=== PATIENT | male | born 1955 | race Caucasian/White ===

== ENCOUNTER → 2017-08-25 | Outpatient (CLI) | payer OTHER | END | disposition home or self-care (01) | LOC: CDC 11:59 | DX: Z01.810 Encounter for preprocedural cardiovascular examination (principal) | CPT/HCPCS: 93000 ==

== ENCOUNTER 2018-01-07 09:58 | Observation (INO) | payer OTHER ==
[~2018-01-07] VITALS: Ht 172.7 cm; Wt 77.5 kg
[2018-01-07 10:14] LABS: BASOPHIL (%) 0.1 % (0-1); EOSINOPHIL (%) 0 % (0-5); HEMATOCRIT 48.5 % (38.0-50.0); HEMOGLOBIN 17.6 G/DL (12.5-16.6); IMMATURE GRANULOCYTE (%) 0.4 % (0.0-0.7); LYMPHOCYTE (%) 14.2 % (15-42); MCH 32.9 PG (29.0-34.0); MCHC 36.3 G/DL (30.0-36.0); MCV 90.7 FL (86-99); MONOCYTE (%) 6.8 % (3-12); MONOCYTE COUNT 0.9 K/uL (0-0.8); NEUTROPHIL (%) 78.5 % (45-76); NEUTROPHIL COUNT 10.7 K/uL (1.8-6.4); PLATELET COUNT 126 K/uL (156-360); RBC DIS.WIDTH-CV 12.2 % (11.8-14.6); RBC DIS.WIDTH-SD 40.2 % (39-53); RED BLOOD COUNT 5.35 M/uL (4.00-5.50); WHITE BLOOD COUNT 13.7 K/uL (4.1-10.2)
[2018-01-07 10:19] LABS: INTER. NORMALIZED RATIO 1.1
[2018-01-07 10:22] LABS: PTT 32.5 SEC (25-37)
[2018-01-07 10:24] LABS: AMYLASE 32 IU/L (1-118); CHLORIDE 109 mEq/L (99-109); POTASSIUM 4.3 mEq/L (3.7-5.4); SODIUM 142 mEq/L (136-147)
[2018-01-07 10:26] LABS: GLUCOSE 290 mg/dL (70-99)
[2018-01-07 10:29] LABS: SERUM ETHYL ALCOHOL < 10 mg/dL
[2018-01-07 10:30] LABS: GFR ESTIMATE (CALCULATED) > 59 mL/min/ (58.99-99999)
[2018-01-07 10:31] LABS: UREA NITROGEN (BUN) 11 mg/dL (9-23)
[2018-01-07 10:33] LABS: LIPASE 20 U/L (1.0-51.0)
[2018-01-07 10:37] LABS: TROP-I INTERPRETATION NEGATIVE; TROPONIN-I 0.02 ng/mL (0.0-0.30)
[2018-01-07 11:20] LABS: APPEARANCE CLEAR ((CLEAR)); BILIRUBIN NEGATIVE; BLOOD NEGATIVE; COLOR YELLOW ((YELLOW)); GLUCOSE (STRIP) >=500; KETONES NEGATIVE; LEUKOCYTES NEGATIVE; NITRITE NEGATIVE; PROTEIN (STRIP) 30; SPECIFIC GRAVITY 1.013 (1.000-1.030); UCUL ADDED? NO
[2018-01-07 11:29] LABS: AMPHETAMINE NEGATIVE (500 ng/mL); BARBITURATES NEGATIVE (200 ng/mL); BENZODIAZEPINES PRESUMPTIVE POSITIVE (150 ng/mL); BUPRENORPHINE NEGATIVE (10 ng/mL); COCAINE NEGATIVE (150 ng/mL); METHADONE NEGATIVE (200 ng/mL); METHAMPHETAMINE NEGATIVE (500 ng/mL); OPIATES (MORPHINE) NEGATIVE (100 ng/mL); OXYCODONE NEGATIVE (100 ng/mL); PHENCYCLIDINE NEGATIVE (25 ng/mL); PROPOXYPHENE NEGATIVE (300 ng/mL); THC CANNABINOIDS NEGATIVE (50 ng/mL); TRICYCLIC ANTIDEPRESSANTS NEGATIVE (300 ng/mL)
[2018-01-07 12:16] LABS: BENZODIAZEPINES, URINE SCREEN POSITIVE (200 ng/mL)
[2018-01-07] MEDS ORDERED: FENTANYL1 EAC5 TD (13:06)
[2018-01-07] MEDS ORDERED: OXYCODONE-APAP1 EACH PO (13:07)
[2018-01-07 14:47] LABS: HDL CHOLESTEROL 51 MG/DL (Desirable>=40); LDL CHOLESTEROL 129 mg/dL (Desirable<100); NON-HDL CHOLESTEROL 154 mg/dL (Desirable<160); TOTAL CHOLESTEROL 205 mg/dL (Desirable<200); TRIGLYCERIDES 125 MG/DL (Normal: <150)
[2018-01-07 15:55] VITALS: BP 184/91
[2018-01-07 18:15] VITALS: BP 149/79
[2018-01-07 19:43] VITALS: BP 185/86
[2018-01-08 03:54] VITALS: BP 167/79
[2018-01-08 05:25] LABS: HEMATOCRIT 46.1 % (38.0-50.0); HEMOGLOBIN 16.3 G/DL (12.5-16.6); MCH 32.7 PG (29.0-34.0); MCHC 35.4 G/DL (30.0-36.0); MCV 92.4 FL (86-99); PLATELET COUNT 135 K/uL (156-360); RBC DIS.WIDTH-CV 12.6 % (11.8-14.6); RBC DIS.WIDTH-SD 43.1 % (39-53); RED BLOOD COUNT 4.99 M/uL (4.00-5.50); WHITE BLOOD COUNT 10.7 K/uL (4.1-10.2)
[2018-01-08 07:27] VITALS: BP 138/58
[2018-01-08 09:45] LABS: HEMOGLOBIN A1c (GLYCOHEMOGLOB) 5.6 % (Below 5.7)
[2018-01-08 12:48] VITALS: BP 136/75
[2018-01-08] MEDS ORDERED: LOPRESSOR25 MG PO (15:10)
== END 2018-01-08 16:50 | disposition home or self-care (01) ==
LOC: EME 09:58 → EDOF 11:25 → ENRESERV 11:28 → 4SOUTH 15:38
PROVIDERS: Family Medicine; Hospitalist
DX: R41.0 Disorientation, unspecified (principal); I16.0 Hypertensive urgency; I10 Essential (primary) hypertension; Z86.73 Personal history of transient ischemic attack (TIA), and cerebral infarction without residual deficits; R74.0 Nonspecific elevation of levels of transaminase and lactic acid dehydrogenase [LDH]; Z91.14 Patient's other noncompliance with medication regimen; Z91.19 Patient's noncompliance with other medical treatment and regimen; I25.10 Atherosclerotic heart disease of native coronary artery without angina pectoris; I73.9 Peripheral vascular disease, unspecified; Z60.2 Problems related to living alone; G93.89 Other specified disorders of brain; G89.29 Other chronic pain; F17.210 Nicotine dependence, cigarettes, uncomplicated
CPT/HCPCS: 70450; 70551; 80047; 80048; 80061; 81003; 82150; 82948; 83036; 83605; 83690; 84484; 84999; 85025; 85027; 85610; 85730; 86850; 86900; 86901; 93005; 99281; 99285; G0378; G0480; G8978 GP CH; G8979 GP CH; G8980 GP CH; G8987 GO CH; G8988 GO CH; G8989 GO CH; J0360; J1644; J3010; J7030; J7040